=== PATIENT | female | born 2000 | race Caucasian/White ===

== ENCOUNTER 2024-08-04 13:00 | Emergency (ER) | payer SELFPAY ==
[2024-08-04 13:05] VITALS: BP 120/83
--- NOTE | 2024-08-04 15:34 | ED.ATTNOTE ---
ED Attending Note
ED Attending Note
ED Attending Note:
Pt eloped prior to me evaluating patient
-
Portions of this chart may have been created with voice recognition software.� Occasional wrong word or��sound alike� substitutions may have occurred due to the inherent limitations of voice recognition software.
== END 2024-08-04 15:50 | disposition left against medical advice (07) ==
LOC: EMR 13:00
PROVIDERS: EMERGENCY PHYSICIAN Emergency Medicine
DX: R44.1 Visual hallucinations (principal); R44.0 Auditory hallucinations